=== PATIENT | female | born 1975 | race Caucasian/White ===

== ENCOUNTER 2016-10-13 12:50 | Observation (INO) | payer OTHER ==
--- NOTE | ~2016-10-13 | EKG ---
PATIENT: ANDREIA MCKINLEY UNIT #: [id number] Ventricular Rate: 79 BPM Atrial Rate: 79 BPM P-R Interval: 140 ms QRS Duration: 88 ms Q-T Interval: 402 ms QTC Calculation(Bezet): 460 ms P [place]: 27 degrees Calculated R [place]: 76 degrees Calculated T [place]: 16 degrees Diagnosis Line: Normal sinus rhythm Diagnosis Line: Normal ECG Diagnosis Line: No previous ECGs available Diagnosis Line: Confirmed by ROSS HERNANDEZ MD ([id number]) on 10/14/2016 Diagnosis Line: 7:06:15 AM INTERPRETING MD: MARY DONNELLY
--- NOTE | ~2016-10-13 | CT2 ---
[facility] A Service of [facility] RADIOLOGY TEXT RESULTS PATIENT: ANDREIA MCKINLEY LOCATION: [place] [address] : [birth year] UNIT #: [id number] AGE: [address]: Maryam Marshall MD SEX: F ORDER DR: [id number] [facility] [address]. [place], [place] [address] [id number] I MR#: [id number] #: [id number] NAME: ANDREIA MCKINLEY. : 1975 SEX: F STUDY DATE/TIME: 10/13/2016 14:58 UNIT: [facility] ROOM: [facility] STUDY DESCRIPTION: CT Abd and Pelv W Cont Attending Physician: Gisselle aBrtholomew M.D. Ordering Physician: Jose R BoogiePGabyRShirley Primary Care Physician: Jose R TangPGabyRShirley MEDICAL IMAGING REPORT This report is preliminary unless electronic signature is present EXAM CT abdomen and pelvis with contrast, 10/13/2016 HISTORY History of pancreatitis, abdominal pain, nausea and vomiting since this morning. COMPARISON CT abdomen and pelvis 06/12/[address] exam was performed with one or more of the following radiation dose reduction techniques: automatic exposure control, adjustment of mA and/or kV according to patient size, and iterative reconstruction. FINDINGS Axial images performed through the abdomen and pelvis following IV contrast. Multiplanar reconstructed images reviewed at a workstation. ABDOMEN: Lung bases unremarkable except for a small amount of left basilar atelectasis. Diffuse fatty infiltration of the liver. Gallbladder and spleen appear normal. Pancreas and adrenal glands unremarkable. A 6 mm nonobstructing stone left kidney. The visualized GI tract to include the appendix appears normal. Retroperitoneum unremarkable. PELVIS: Bladder unremarkable. Low-attenuation lesion in the region of the cervix suggests an endocervical cyst. Patient appears to be postop partial hysterectomy. The liver is enlarged measuring over 22 cm. Osseous structures unremarkable. Moderate obesity. IMPRESSION [facility] A Service of [facility] RADIOLOGY TEXT RESULTS PATIENT: ANDREIA MCKINLEY LOCATION: [place] [address] : [birth year] UNIT #: [id number] AGE: [address]: Maryam Marshall MD SEX: F ORDER DR: 1. Hepatomegaly with diffuse fatty hepatic steatosis or fatty liver. Not significantly changed from May 2016. 2. 6 mm nonobstructing left renal stone. 3. Patient is status post partial hysterectomy. A 1.6 cm endocervical cyst noted within the cervix. Dictated by... Daniella Fallon M.D. THIS IS AN ELECTRONICALLY VERIFIED REPORT Daniella Fallon M.D. at 10/14/2016 5:02 PM JONATHAN/lazaro TD: 10/13/2016 23:14 JOB #: [id number] MEDICAL IMAGING REPORT COPY
--- NOTE | ~2016-10-13 | HP ---
Unit #: [id number] #: [id number] Patient: ANDREIA MCKINLEY [id number] [address] [place], [place] [address] [id number] I MR#: [id number] NAME: ANDREIA MCKINLEY. ROOM: [facility] Age: 41 Sex: F Admission Date: 10/13/2016 : 1975 Attending Physician: Gisselle Bartholomew M.D. Primary Care Physician: Daina Capellan A.P.R.N. HISTORY AND PHYSICAL CHIEF COMPLAINT Abdominal pain. HISTORY OF PRESENT ILLNESS The patient is a 41-year-old morbidly obese female who basically had a colonoscopy last Friday. She woke up this morning with acute, severe abdominal pain. She rates the pain as a 10 out of 10 in severity. It does not radiate. She basically said that subsequently she started developing nausea, vomiting, and some diarrhea. She admits that the pain was not constant but was somewhat colicky. She denies any blood in her stools or blood in her vomitus. She presented to the emergency room, and here in the emergency room she states that the pain is only minimally ameliorated by IV pain medication. Workup in the emergency room did not reveal any acute findings. She had a CT scan of the abdomen and pelvis here in the ER which shows previously demonstrated acute pancreatitis changes which are significantly improved, but there was some suggestion of peripancreatic haziness with no evidence of necrosis or pancreatic mass. She also had a nonobstructive calculus in the left pole of the left kidney. PAST MEDICAL HISTORY 1. Morbid obesity. 2. Hypertension. 3. History of diverticulitis. 4. Gastroesophageal reflux disease. PAST SURGICAL HISTORY 1. Hysterectomy. 2. Colonoscopy and EGD. HOME MEDICATIONS None. ALLERGIES PENICILLINS. SOCIAL HISTORY She denies any tobacco use, alcohol use, or illicit drug use at this time. FAMILY HISTORY Noncontributory to the presenting complaint. PHYSICAL EXAMINATION GENERAL: She was comfortable lying on the right side in bed. VITAL SIGNS: Blood pressure 148/81, pulse 77, respiratory rate 16, Unit #: [id number] #: [id number] Patient: ANDREIA MCKINLEY temperature 98, and saturating 100% on room air. HEENT: Pupils were equal and reactive to light and accommodation. NECK: Supple without thyromegaly. CHEST: Mostly clear. ABDOMEN: Full. Moved with respiration. Some epigastric tenderness with no rebound. Positive normal sounds. Bowel sounds did not sound hyperactive or hypoactive to me. CENTRAL NERVOUS SYSTEM: Alert and oriented x3. Moves all limbs spontaneously. Cranial nerves II-XII grossly intact. SKIN: Warm and dry with no rash. LYMPHATICS: No enlarged peripheral lymphadenopathy that I could appreciate. DIAGNOSTIC STUDIES LABORATORY: Chemistry with glucose of 106, BUN and creatinine 12 and 0.6, sodium and potassium 139 and 4.3, and calcium of 82. CBC with WBC of 12.2, hemoglobin and hematocrit 12.2 and 38.7, and platelet count of 297,000. She had a urinalysis which was essentially normal. IMAGING: CT scan of the abdomen and pelvis with the above previously dictated findings. ASSESSMENT AND PLAN 1. Abdominal pain, epigastric, questionable etiology at this time given the fact that she has had a colonoscopy recently and (1) CT scan findings that suggest pancreatitis. Her amylase and lipase are down today at 13 and 15, respectively. Will put her on bowel rest, give IV fluids, check a CBC and BMP in the morning, and repeat her labs as well. Will consult Dr. Yuriy Kuhn as he has seen her recently. I am going to give her some Bentyl as well. 2. Gastroesophageal reflux disease. Put her on some IV Protonix 40 mg daily. 3. Hypertension. Watch her blood pressure at this time. Dictated by Keith Villalobos/nan TD: 10/13/2016 20:48 JOB #: [id number] HISTORY AND PHYSICAL X Gisselle Bartholomew MD HISTORY AND PHYSICAL
--- NOTE | ~2016-10-13 | BMI ---
[facility] Nutrition Therapy DATE: 10/14/16 Patient: ANDREIA Andrews MCKINLEY Physician: BOBBY Address: [address] [place] [address] Room/Bed: [address] [place] [address], Zip: [place] [address] Admit Date: 10/13/16 Date of : [birth year] Height: 5 6 Weight: 349 158.7 HIGH BMI NOTE: ANTHROPOMETRICS: HT: 66" WT: 158.7 KG BMI: 56.5 INTERVENTION: 1. FULL LIQUID DIET RECOMMENDATIONS: 1. ONCE MEDICALLY FEASIBLE, ADVANCE THE PT TO A HEART HEALTHY DIET TOLERATED IN ORDER TO PROMOTE GRADUAL WEIGHT LOSS TOWARDS A HEALTHY BMI. Respectfully, RAMESH JOHNSTON RD, LD Food and Nutritional Services [facility] cc: client file
--- NOTE | ~2016-10-13 | DS ---
Unit #: [id number] #: [id number] Patient: ANDREIA MCKINLEY [id number] [address] [place], [place] [address] [id number] MR#: [id number] NAME: ANDREIA MCKINLEY. ROOM: 47 Age: 41 Sex: F Admission Date: 10/13/2016 : 1975 Discharge Date: Attending Physician: Maryam Marshall M.D. Primary Care Physician: Jose R TangPGabyRGabyN. DISCHARGE SUMMARY DISCHARGE DIAGNOSES 1. Abdominal pain, most likely secondary to mild pancreatitis. 2. Gastroesophageal reflux disease. 3. Hypertension. 4. Morbid obesity. 5. History of diverticulosis. CONSULTANTS Dr. Kuhn. PROCEDURES None. DIAGNOSTIC STUDIES LABORATORY: Sodium 136, potassium 3.8, creatinine 0.6, calcium 7.3, lipase 17, amylase 12. WBC 7.3, hemoglobin 10.9, platelets 239. Troponin 0.03. Urinalysis negative. Beta HCG negative. IMAGING: CAT scan of abdomen and pelvis shows hepatomegaly with a diffuse hepatic steatosis, fatty liver. 6 mm nonobstructing left renal stone present. No other acute findings. CARDIOVASCULAR: EKG normal sinus rhythm. ALLERGIES Penicillin. DISCHARGE MEDICATIONS Bentyl 20 mg t.i.d. p.r.n. abdominal spasm. HOSPITAL COURSE Ezbet-hfw-smej-old admitted because of abdominal pain. Abdominal pain, most likely secondary to mild pancreatitis. She did have a history of pancreatitis in the past but CT was negative, amylase and lipase negative. She had a recent colonoscopy but CT did not show any perforation or abscess. No acute findings. Currently, she is tolerating a full liquid diet okay. I am going to change her to low-fat diet. If tolerates I am going to discharge her home. Dr. Kuhn to see her if he can before discharge; otherwise, she will follow with him as an outpatient. Hypertension, well controlled. History of diverticulitis, currently CT did not show any acute problems. Unit #: [id number] #: [id number] Patient: ANDREIA MCKINLEY Morbid obesity. Continue with low-fat diet and low calories. DISCHARGE DISPOSITION Will be discharged home. FOLLOWUP 1. Family physician in one week time. 2. Dr. Yuriy Kuhn in 3-4 weeks' time. Dictated by... Keith Garcia TD: 10/14/2016 20:28 JOB #: [id number] DISCHARGE SUMMARY X Maryam Marshall MD X DISCHARGE SUMMARY
[~2016-10-13 12:50] MED LIST: ADVIL100 MG PO; TYL325 PO
[2016-10-13 13:10] LABS: BASOPHIL# 0.1 X10e3 (0-0.3); BASOPHIL% 0.6 % (0-2.5); EOSINOPHIL# 0.5 X10e3 (0-0.7); EOSINOPHIL% 3.8 % (0.0-7.0); HEMATOCRIT 38.7 % (35.0-45.0); HEMOGLOBIN 12.2 gm/dL (12.0-16.0); LYMPHOCYTE# 0.8 X10e3 (1.0-3.5); LYMPHOCYTE% 6.6 % (17.0-45.0); MEAN CELL VOLUME 78.9 FL (83-96); MEAN CORPUSCULAR HEMOGLOBIN 24.9 PG (28-34); MEAN CORPUSCULAR HGB CONC 31.6 g/dL (30-36); MEAN PLATELET VOLUME 9.7 FL (6.5-11.5); MONOCYTE# 0.5 X10e3 (0-1.0); MONOCYTE% 3.9 % (3.0-12.0); NEUTROPHIL# 10.4 X10e3 (1.5-7.1); NEUTROPHIL% 85.1 % (40-75); PLATELET COUNT 297 X10e3 (140-420); RED CELL DISTRIBUTION WIDTH 17.5 % (11.0-15.5); WHITE BLOOD COUNT 12.2 X10e3 (4.0-10.5)
[2016-10-13 13:11] LABS: DIFF IND NO
[2016-10-13 13:38] LABS: ALBUMIN SERUM 3.4 g/dL (3.5-5.0); ALKALINE PHOSPHATASE 77 U/L (32-92); ALT (SGPT) 22 U/L (10-40); AMYLASE 13 U/L (0-46); AST (SGOT) 30 U/L (10-42); BILIRUBIN, DIRECT 0.2 mg/dL (0.0-0.2); BILIRUBIN,INDIRECT 0.6 mg/dL (0.0-0.9); BILIRUBIN,TOTAL 0.8 mg/dL (0.2-2.0); BLOOD UREA NITROGEN 12 mg/dL (9-23); CALCIUM SERUM 8.2 mg/dL (8.4-10.2); CARBON DIOXIDE 28 mmol/L (22-31); CHLORIDE 103 mmol/L (100-111); CREATININE SERUM 0.6 mg/dL (0.6-1.4); GLOM FILT RATE Estimated ABOVE60 mL/min (>60); GLUCOSE FASTING 106 mg/dL (70-110); LIPASE 15 U/L (22-51); POTASSIUM 4.3 mmol/L (3.5-5.1); PROTEIN TOTAL SERUM 7.4 g/dL (6.0-8.3); SODIUM 139 mmol/L (135-145)
[2016-10-13 14:40] LABS: URINE SOURCE CLEAN CATCH
[2016-10-13 14:44] LABS: URINE APPEARANCE CLEAR; URINE BILIRUBIN NEG (NEG); URINE BLOOD NEG (NEG); URINE COLOR YELLOW; URINE GLUCOSE NEG (NEG); URINE KETONE NEG (NEG); URINE LEUKOCYTE ESTERASE NEG (NEG); URINE NITRATE NEG (NEG); URINE PH 7.5 (5-8); URINE PROTEIN NEG (NEG); URINE SPECIFIC GRAVITY 1.024 (1.003-1.035); URINE UROBILINOGEN 0.2 MG/DL (NEG)
[2016-10-13 14:48] LABS: CULTURE INDICATED? NO
[2016-10-13 18:14] LABS: CK TOTAL 51 IU/L (26-140)
[2016-10-14 03:10] LABS: BASOPHIL% 0.5 % (0-2.5); EOSINOPHIL# 0.4 X10e3 (0-0.7); HEMATOCRIT 33.8 % (35.0-45.0); HEMOGLOBIN 10.9 gm/dL (12.0-16.0); LYMPHOCYTE# 1.4 X10e3 (1.0-3.5); LYMPHOCYTE% 18.4 % (17.0-45.0); MEAN CELL VOLUME 79.4 FL (83-96); MEAN CORPUSCULAR HEMOGLOBIN 25.7 PG (28-34); MEAN CORPUSCULAR HGB CONC 32.3 g/dL (30-36); MONOCYTE# 0.5 X10e3 (0-1.0); MONOCYTE% 6.9 % (3.0-12.0); NEUTROPHIL% 68.2 % (40-75); PLATELET COUNT 239 X10e3 (140-420); RED BLOOD COUNT 4.26 X10e (3.90-5.30); RED CELL DISTRIBUTION WIDTH 17.4 % (11.0-15.5); WHITE BLOOD COUNT 7.3 X10e3 (4.0-10.5)
[2016-10-14 03:14] LABS: DIFF IND NO
[2016-10-14 03:38] LABS: AMYLASE 12 U/L (0-46); BLOOD UREA NITROGEN 10 mg/dL (9-23); BUN/CREATININE RATIO 16.66; CALCIUM SERUM 7.3 mg/dL (8.4-10.2); CARBON DIOXIDE 27 mmol/L (22-31); CHLORIDE 105 mmol/L (100-111); CREATININE SERUM 0.6 mg/dL (0.6-1.4); GLOM FILT RATE Estimated ABOVE60 mL/min (>60); GLUCOSE FASTING 120 mg/dL (70-110); LIPASE 17 U/L (22-51); POTASSIUM 3.8 mmol/L (3.5-5.1); SODIUM 133 mmol/L (135-145)
[2016-10-14] MEDS ORDERED: BENTYL20 MG PO (19:57)
== END 2016-10-14 19:30 | disposition home or self-care (01) | DRG 392 ==
LOC: CED 12:50 → CEDOF 17:10 → C4C 18:51
PROVIDERS: Family Medicine; Nurse Practitioner
DX: R10.13 Epigastric pain (principal); K21.9 Gastro-esophageal reflux disease without esophagitis; I10 Essential (primary) hypertension; E66.01 Morbid (severe) obesity due to excess calories; Z87.19 Personal history of other diseases of the digestive system; N20.0 Calculus of kidney; K76.0 Fatty (change of) liver, not elsewhere classified; R11.2 Nausea with vomiting, unspecified; R19.7 Diarrhea, unspecified; Z88.0 Allergy status to penicillin; N88.8 Other specified noninflammatory disorders of cervix uteri; Z90.711 Acquired absence of uterus with remaining cervical stump
CPT/HCPCS: 36415; 74177; 80048; 80076; 81003; 82150; 82550; 83690; 84484; 84703; 85025; 93005; 96361; 96374; 96375; 96376; 99285; C9113; G0378; J0500; J1170; J2270; J2405; Q9967